=== PATIENT | female | born 1955 | race Caucasian/White ===

== ENCOUNTER → 2017-02-14 | Day surgery (SDC) | payer BC ==
[~2017-02-14] VITALS: Ht 157.5 cm; Wt 127.0 kg
[~2017-02-14] MED LIST: ACETAMINOPHEN 325 MG TAB PO PRN; ALBUAER2 INH; ASMIN/60 INH; ASPI81TA28 PO; ATROPINE SULFATE 0.1 MG/ML 5ML SYR IV PRN; CALCTAB5 PO; DMD20 PO; HYCUDL5 PO; LORA10TA51 PO; LRT5 PO; METO-217 PO; MIDAZOLAM HCL 1 MG/ML 2ML VIAL ONE; ONDA4TAB46 PO; ONDANSETRON INJ 2 MG/ML 2 ML VIAL IV PRN; POLYSOL8 OPB; POTA10TA PO; PRLSR20 PO; PSYL55.43 PO; SALI1SPR3 NAE; SODIUM CHLORIDE 0.9% 1000ML 1,000 ML IV SCH; SODIUM CHLORIDE 0.9% 1000ML 250 ML IV PRN; SPIR25TA PO
[2017-02-14 07:29] VITALS: Ht 157.5 cm; Wt 127.0 kg
[2017-02-14 07:39] VITALS: BP 150/78; PULSE 75; TEMP 36.4; O2SAT 96
--- NOTE | 2017-02-14 08:56 | History & Physical Bridge Note ---
H&P Re-Evaluation Bridge Note: I have examined the patient, reviewed the History & Physical and in the interval since the performance of the History & Physical I have noted the following changes of clinical significance: No changes noted
--- NOTE | 2017-02-14 09:03 | Cardiac Catheterization ---
Procedure Note Procedure Date Feb 14, 2017. Pre-Procedure Diagnosis Positive Stress Test AUC Score 7 Post-Procedure Diagnosis Normal Coronary Arteries, Normal LV Systolic Function, Normal Intracardiac Pressures Procedure(s) Performed Coronary Angiography, Left Heart Cath, LV Angiography Oncology Physician Dr. Villaseñor Base Ply Hand(s) None Estimated Blood Loss None Medication(s) Versed, Lidocaine 1% Summary of Findings Normal Coronaries. Nomal LV Function Hemodynamics Rest Ao: 153/79 Final Ao: 142/69 LV: 140/23 Recommendations Medical therapy and/or Counseling Specimens None Radiation Exposure (mGy) 1350 Contrast (mls) 129 Fluids (cc crystalloids) 50 Procedural Complication(s) None Disposition [employer] Holding/Recovery ACC Data Cardiac Status Clinical evaluation leading to the procedure CAD Presntation: Positive Stress Test Anginal Classification: CCS II Heart Failure: No Cardiogenic Shock w/in 24Hrs: No Cardiac Arrest w/in 24Hrs: No Imaging studies past 6 months: Yes Stress Testing w/SPECT MPI: Yes - Positive Coronary Anatomy Dominant: Right Left Main (% Stenosis): Normal LAD (% Stenosis): Normal Circumflex (% Stenosis): Normal RCA (% Stenosis): Normal Left Ventricular Angiography EF (%): 60 Mitral Regurgitation: None Diagnostic Physician's Name: Sebas Villaseñor, DO Status: Elective Closure Device Percutaneous Entry Location: Femoral Closure Device: Mynx Recommendations: Medical therapy and/or Counseling
--- NOTE | 2017-02-14 09:12 | Discharge Instructions ---
Discharge Instructions Procedure Procedure Date: Feb 14, 2017. Reason for Visit: Abnormal Nuc Med Stress Test *Dr. Villaseñor To Do*. Discharge Discharge Date: Feb 14, 2017. Discharge Diagnosis: Normal coronaries Last Recorded Wt (Kilograms): 127 Anesthesia Post Anesthesia Instructions: If you have had General Anesthesia or IV Sedation: * Do not drive today. * Resume driving when surgeon permits. * Do not make important decisions or sign legal documents today. * Call surgeon for: 1. Temperature elevations greater than 101 degrees F. 2. Uncontrollable pain. 3. Excessive bleeding. 4. Persistent nausea and vomiting. 5. Medication intolerance (nausea, vomiting or rash). * For nausea and vomiting use only clear liquids such as: tea, soda, bouillon until nausea subsides, then gradually increase diet as tolerated. * If you have any concerns or questions, call your surgeon's office. If physician is unavailable and it is an emergency, call 911 or go to the nearest emergency room. Instructions Activity Recommendations: limitations Recommended Home Diet: resume previous diet Allergies: Coded Allergies: Morphine (Verified Allergy, Mild, ITCH, 08/24/10) Clavulanic Acid (Verified Adverse Reaction, Mild, AUGMENTIN-NAUSEA, ) Sulfa Drugs (Verified Adverse Reaction, Mild, GI UPSET. TAKES DEMADEX AT HOME., 08/24/10) Provider Instructions ACTIVITY RECOMMENDATIONS: It is common to feel weak and fatigue for a few days. * Do not drive or operate any motorized equipment for the next three days. * Limit stair usage (2 or 3 trips a day only) for the next three days. * Do not lift anything heavier than 10 pounds for the next three days. * Do not engage in vigorous exercise or any sports for the next five days. * You may shower the day after your procedure, but do not immerse the area for three days. Cleanse the site gently with soap and water. SPECIAL CARE INSTRUCTIONS: * You may replace the pressure dressing or band-aid the morning after the procedure. * After your procedure, it is normal to have a small bruise or small lump at the site. Examine your site daily for any change in the bruise or lump, redness, swelling, drainage or numbness. Notify your doctor if any change. BLEEDING: * If there is a small amount of bleeding at the site, lie down and apply firm pressure with a clean cloth for ten minutes. When the bleeding stops, lie quietly keeping the procedure limb straight for six hours. Notify your doctor as soon as possible. * If the bleeding does not stop after ten minutes or if there is a large amount of bleeding or spurting, call 911 immediately. Continue to lie down and hold firm pressure until help arrives. SKIN IRRITATION: * You may experience some redness and/or swelling in the area where radiation was administered. If any skin irritation occurs, please contact your family physician. FOLLOW UP VISIT: Keep any scheduled doctor appointments. Follow Up Follow-up with: Follow-up with PCP in 3-4 weeks Linda Low Recommendations: Call your doctor if: * Temperature above 101 degrees * Pain not relieved by pain medicine ordered * There is increased drainage or redness from any incision * You have any unanswered questions or concerns. Your Doctors Instructions noted above were prepared by provider Sebas Villaseñor. Patient Signature Section: Patient Instructions Signature Page Sunday Patient (or Guardian) Signature/Date: I have read and understand the instructions given to me by my caregivers. Caregiver/RN/Doctor Signature/Date: The above-named patient and/or guardian has received patient instructions on this date. + Original Patient Signature Page (only) stays with chart. Please make copy for patient.
[2017-02-14 13:00] VITALS: BP 155/66; PULSE 79; O2SAT 97
== END | disposition home or self-care (01) ==
LOC: C.CATH 06:43
PROVIDERS: ATTEND Internal Medicine Interventional Cardiology
DX: R94.39 Abnormal result of other cardiovascular function study (principal); G47.33 Obstructive sleep apnea (adult) (pediatric); E66.01 Morbid (severe) obesity due to excess calories; I50.32 Chronic diastolic (congestive) heart failure; K21.9 Gastro-esophageal reflux disease without esophagitis; Z79.82 Long term (current) use of aspirin; Z90.710 Acquired absence of both cervix and uterus; Z83.3 Family history of diabetes mellitus; Z82.49 Family history of ischemic heart disease and other diseases of the circulatory system; Z82.3 Family history of stroke